=== PATIENT | female | born 1955 | race Caucasian/White ===

== ENCOUNTER 2020-07-17 07:41 | Day surgery (SDC) | payer BC ==
[~2020-07-17] VITALS: Ht 157.5 cm; Wt 86.0 kg
[~2020-07-17 07:41] MED LIST: CALCIUM 600 PLU1 TAB PO; L-THYROXINE0.075 MG PO; MICARDIS HCT 121 TAB PO; OMEGA-31 SGL PO; ZOLPIDEM5 MG PO
[2020-07-17 08:04] VITALS: TEMP 97.8
[2020-07-17] MEDS ORDERED: TYLENOL 325MG325 MG PO (08:10)
[2020-07-17] MEDS ORDERED: SYNTHROID0.1 MG/TAB PO (08:10)
[2020-07-17] MEDS ORDERED: AMBIEN 10MG10 MG PO (08:11)
[2020-07-17] MEDS ORDERED: CRESTOR 10MG10 MG PO (08:12)
[2020-07-17] MEDS ORDERED: HYZAAR 25 MG-101 TAB PO (08:12)
[2020-07-17] MEDS ORDERED: PRILOSEC 20MG20 MG PO (08:12)
[2020-07-17] MEDS ORDERED: ZETIA 10MG TAB10 MG PO (08:13)
[2020-07-17] MEDS ORDERED: EFFEXOR XR75 MG/CAP PO (08:13)
[2020-07-17 09:20] VITALS: BP 139/87; PULSE 77; TEMP 98.1
--- NOTE | 2020-07-17 09:20 | NUR ---
Pt returns from [facility], ambulates from cart to recliner with nurse assist. Pt awake and alert. Provided a muffin and cranberry juice. present in the room. Dynamap set up, VSS. Call light in reach.
[2020-07-17 09:35] VITALS: BP 149/87; PULSE 65
[2020-07-17 09:50] VITALS: BP 135/60; PULSE 66
--- NOTE | 2020-07-17 10:00 | NUR ---
Pt awake and alert, VSS, denies pain or nausea. Ready to go home. Dr. Clemente talks with pt and her .
--- NOTE | 2020-07-17 10:15 | NUR ---
Discharge instructions given and IV discontinued.
--- NOTE | 2020-07-17 10:27 | NUR ---
Pt to private vehicle via w/c and let in care of her .
== END 2020-07-17 10:27 | disposition home or self-care (01) ==
LOC: SDCO 07:41
DX: Z12.11 Encounter for screening for malignant neoplasm of colon (principal); K21.9 Gastro-esophageal reflux disease without esophagitis; E03.9 Hypothyroidism, unspecified; I10 Essential (primary) hypertension; E78.5 Hyperlipidemia, unspecified; F32.9 Major depressive disorder, single episode, unspecified; F41.9 Anxiety disorder, unspecified; K64.0 First degree hemorrhoids; Z90.89 Acquired absence of other organs; Z90.710 Acquired absence of both cervix and uterus; Z96.643 Presence of artificial hip joint, bilateral; Z79.890 Hormone replacement therapy; Z79.899 Other long term (current) drug therapy
CPT/HCPCS: J2704; J7030